=== PATIENT | male | born 1980 | race Two or more races ===

== ENCOUNTER → 2024-10-02 | Outpatient (CLI) | payer OTHER, SELFPAY ==
[2024-10-02 14:16] LABS: Basophils % (Auto) 1 % (0-2.5); Eosinophils # (Auto) 0.1 Thou/mm3 (0.0-0.5); Eosinophils % (Auto) 3 % (0-10); Hematocrit 50.2 % (41.0-53.0); Hemoglobin 17.8 g/dL (13.5-16.0); Immature Granulocytes % (Auto) 0 % (0-0); Immature Granulocytes Auto 0.02 Thou/mm3 (0.00-0.00); Lymphocytes # (Auto) 2.2 Thou/mm3 (1.0-4.8); Lymphocytes % (Auto) 40 % (10-50); Mean Corpuscular HGB Conc 35.5 g/dl (31.0-37.0); Mean Corpuscular Hemoglobin 32.6 pg (25.0-35.0); Mean Corpuscular Volume 92 fL (80-100); Monocytes # (Auto) 0.4 Thou/mm3 (0.0-0.8); Monocytes % (Auto) 8 % (0-12); Neutrophils # (Auto) 2.7 Thou/mm3 (1.8-7.7); Neutrophils % (Auto) 49 % (37-80); Nucleated Red Blood Cell % 0 /100 WBC (0); Platelet Count 124 Thou/mm3 (140-440); RDW Standard Deviation 42.9 fL (35.1-43.9); Red Blood Count 5.46 Miln/mm3 (4.50-5.90); White Blood Count 5.5 Thou/mm3 (3.8-10.6)
[2024-10-02 14:40] LABS: Alanine Aminotransferase 26 U/L (10-49); Albumin, Serum 4.8 gm/dL (3.5-5.0); Albumin/Globulin Ratio 1.9 (1.2-2.2); Alkaline Phosphatase 103 U/L (46-116); Anion Gap 9 (7-16); Aspartate Amino Transferase 23 U/L (0-34); BUN/Creatinine Ratio 12 Ratio (12-20); Bilirubin,Total 0.5 mg/dL (0.3-1.2); Blood Urea Nitrogen 23 mg/dL (9-23); Calcium 9.9 mg/dL (8.3-10.6); Calcium (Corrected) 9.9 mg/dL (8.5-10.1); Carbon Dioxide 27.4 mMol/L (20.0-31.0); Chloride 106 mMol/L (98-107); Creatinine (Component) 1.9 mg/dL (0.6-1.3); Globulin 2.5 gm/dL (2.3-3.5); Glucose 124 mg/dL (74-106); Osmolality,Calculated 287 (275-295); Sodium 142 mMol/L (136-145); Total Protein 7.3 gm/dL (5.7-8.2); eGFR 44 See Note
== END | disposition home or self-care (01) ==
LOC: SCTO 12:36
PROVIDERS: PCP Nurse Practitioner Family; Referring Provider Nurse Practitioner Family; Visit Provider Nurse Practitioner Family
DX: D69.3 Immune thrombocytopenic purpura (principal)
CPT/HCPCS: 36415; 80053; 85025

== ENCOUNTER → 2024-10-27 | Outpatient (CLI) | payer OTHER, SELFPAY ==
[2024-10-27 12:16] LABS: Misc Send Out* See Sep Rpt
[2024-10-27 13:15] LABS: Basophils % (Auto) 1 % (0-2.5); Eosinophils # (Auto) 0.2 Thou/mm3 (0.0-0.5); Eosinophils % (Auto) 3 % (0-10); Hematocrit 48.8 % (41.0-53.0); Hemoglobin 16.9 g/dL (13.5-16.0); Immature Granulocytes % (Auto) 1 % (0-0); Immature Granulocytes Auto 0.04 Thou/mm3 (0.00-0.00); Lymphocytes # (Auto) 2.4 Thou/mm3 (1.0-4.8); Lymphocytes % (Auto) 40 % (10-50); Mean Corpuscular HGB Conc 34.6 g/dl (31.0-37.0); Mean Corpuscular Hemoglobin 31.8 pg (25.0-35.0); Mean Corpuscular Volume 92 fL (80-100); Monocytes # (Auto) 0.5 Thou/mm3 (0.0-0.8); Monocytes % (Auto) 8 % (0-12); Neutrophils # (Auto) 2.9 Thou/mm3 (1.8-7.7); Neutrophils % (Auto) 48 % (37-80); Nucleated Red Blood Cell % 0 /100 WBC (0); Platelet Count 171 Thou/mm3 (140-440); RDW Standard Deviation 42.4 fL (35.1-43.9); Red Blood Count 5.32 Miln/mm3 (4.50-5.90); White Blood Count 6.1 Thou/mm3 (3.8-10.6)
[2024-10-27 13:26] LABS: Alanine Aminotransferase 30 U/L (10-49); Albumin, Serum 4.5 gm/dL (3.5-5.0); Albumin/Globulin Ratio 1.7 (1.2-2.2); Alkaline Phosphatase 104 U/L (46-116); Anion Gap 8 (7-16); Aspartate Amino Transferase 26 U/L (0-34); BUN/Creatinine Ratio 11 Ratio (12-20); Bilirubin,Total 0.5 mg/dL (0.3-1.2); Blood Urea Nitrogen 19 mg/dL (9-23); Calcium 10.1 mg/dL (8.3-10.6); Calcium (Corrected) 10.1 mg/dL (8.5-10.1); Chloride 103 mMol/L (98-107); Creatinine (Component) 1.8 mg/dL (0.6-1.3); Globulin 2.6 gm/dL (2.3-3.5); Glucose 108 mg/dL (74-106); Osmolality,Calculated 282 (275-295); Potassium 4.3 mMol/L (3.4-5.1); Sodium 140 mMol/L (136-145); Total Protein 7.1 gm/dL (5.7-8.2); eGFR 46 See Note
[2024-11-03 06:37] LABS: Erythropoietin (EPO)* 11.6 mIU/mL (2.6-18.5)
== END | disposition home or self-care (01) ==
LOC: SCTO 11:49
PROVIDERS: PCP Nurse Practitioner Family; Referring Provider Nurse Practitioner Family; Visit Provider Nurse Practitioner Family
DX: D69.3 Immune thrombocytopenic purpura (principal)
CPT/HCPCS: 36415; 80053; 81219; 81270; 81279; 81339; 82668; 85025

== ENCOUNTER 2024-10-29 13:59 | Outpatient (RCR) | payer OTHER, SELFPAY | END 2024-10-31 23:59 | disposition home or self-care (01) | LOC: SCTC 13:59 | PROVIDERS: PCP Nurse Practitioner Family; Referring Provider Nurse Practitioner Family; Visit Provider Nurse Practitioner Family | DX: D69.3 Immune thrombocytopenic purpura (principal) | CPT/HCPCS: 99212; G0463 ==

== ENCOUNTER 2024-11-10 15:44 | Outpatient (RCR) | payer OTHER, SELFPAY | END 2024-11-28 23:59 | disposition home or self-care (01) | LOC: SCTC 15:44 | PROVIDERS: PCP Nurse Practitioner Family; Referring Provider Nurse Practitioner Family; Visit Provider Nurse Practitioner Family | DX: D69.3 Immune thrombocytopenic purpura (principal); D75.1 Secondary polycythemia; E66.9 Obesity, unspecified; Z21 Asymptomatic human immunodeficiency virus [HIV] infection status; Z79.899 Other long term (current) drug therapy | CPT/HCPCS: 99212; G0463 ==

== ENCOUNTER → 2024-11-28 | Outpatient (CLI) | payer OTHER, SELFPAY ==
[2024-11-28 13:45] LABS: Basophils % (Auto) 1 % (0-2.5); Eosinophils # (Auto) 0.2 Thou/mm3 (0.0-0.5); Eosinophils % (Auto) 3 % (0-10); Hematocrit 47.5 % (41.0-53.0); Hemoglobin 16.6 g/dL (13.5-16.0); Immature Granulocytes % (Auto) 0 % (0-0); Immature Granulocytes Auto 0.03 Thou/mm3 (0.00-0.00); Lymphocytes % (Auto) 42 % (10-50); Mean Corpuscular HGB Conc 34.9 g/dl (31.0-37.0); Mean Corpuscular Hemoglobin 31.7 pg (25.0-35.0); Mean Corpuscular Volume 91 fL (80-100); Monocytes # (Auto) 0.7 Thou/mm3 (0.0-0.8); Monocytes % (Auto) 9 % (0-12); Neutrophils # (Auto) 3.2 Thou/mm3 (1.8-7.7); Neutrophils % (Auto) 45 % (37-80); Nucleated Red Blood Cell % 0 /100 WBC (0); Platelet Count 185 Thou/mm3 (140-440); RDW Standard Deviation 41.5 fL (35.1-43.9); Red Blood Count 5.23 Miln/mm3 (4.50-5.90); White Blood Count 7.1 Thou/mm3 (3.8-10.6)
[2024-11-28 14:07] LABS: Alanine Aminotransferase 20 U/L (10-49); Albumin, Serum 4.5 gm/dL (3.5-5.0); Albumin/Globulin Ratio 1.7 (1.2-2.2); Alkaline Phosphatase 115 U/L (46-116); Anion Gap 6 (7-16); Aspartate Amino Transferase 18 U/L (0-34); BUN/Creatinine Ratio 11 Ratio (12-20); Bilirubin,Total 0.5 mg/dL (0.3-1.2); Blood Urea Nitrogen 19 mg/dL (9-23); Calcium 9.8 mg/dL (8.3-10.6); Calcium (Corrected) 9.8 mg/dL (8.5-10.1); Carbon Dioxide 29.8 mMol/L (20.0-31.0); Chloride 107 mMol/L (98-107); Creatinine (Component) 1.8 mg/dL (0.6-1.3); Globulin 2.7 gm/dL (2.3-3.5); Glucose 102 mg/dL (74-106); Osmolality,Calculated 287 (275-295); Potassium 4.9 mMol/L (3.4-5.1); Sodium 143 mMol/L (136-145); Total Protein 7.2 gm/dL (5.7-8.2); eGFR 46 See Note
[2024-12-05 06:29] LABS: Testosterone,Total* 459 ng/dL (250-1100)
== END | disposition home or self-care (01) ==
LOC: COPL 12:16 → SCTO 12:35
PROVIDERS: PCP Nurse Practitioner Family; Referring Provider Nurse Practitioner Family; Visit Provider Nurse Practitioner Family
DX: D69.3 Immune thrombocytopenic purpura (principal)
CPT/HCPCS: 36415; 80053; 84403; 85025

== ENCOUNTER → 2024-12-05 | Outpatient (CLI) | payer OTHER, SELFPAY ==
--- NOTE | 2024-12-05 10:00 | XR_ITS ---
Examination: Abdomen sonogram, complete Date and time of exam: December 05, 2024 1014 hours INDICATIONS: Diagnosis thrombocytopenia. 5 years Technique: Multiple real-time grayscale transabdominal sonographic images of the abdomen have been obtained. Findings: Multiple gallstones Gallbladder wall 12 mm Common bile duct 0.3 cm Pancreatic head 2.8 cm Aorta not enlarged Liver 12.9 cm fatty liver no focal liver lesions Normal hepatopedal portal venous oh Patent IVC Right kidney 10.2 cm cortex 1.7 cm Left kidney 9.2 cm cortex 1.8 cm 6 mm upper pole left renal calculus Moderate bilateral renal parenchymal scar formation Spleen 11.4 cm IMPRESSION: Cholelithiasis, cholecystitis, consider HIDA scan follow-up Fatty liver 6 mm nonobstructing left renal calculus
== END | disposition home or self-care (01) ==
LOC: CDIM 09:40
PROVIDERS: PCP Nurse Practitioner Family; Referring Provider Nurse Practitioner Family; Visit Provider Nurse Practitioner Family
DX: K80.10 Calculus of gallbladder with chronic cholecystitis without obstruction (principal); K76.0 Fatty (change of) liver, not elsewhere classified; N20.0 Calculus of kidney
CPT/HCPCS: 76700

== ENCOUNTER 2024-12-09 15:14 | Outpatient (RCR) | payer OTHER, SELFPAY ==
--- NOTE | 2024-12-22 00:34 | CTCFLWUP_ITS ---
Patient: KELLIE BROOKS : 1980 Page 3 of 5 HEMATOLOGY FOLLOW UP NOTE DATE OF SERVICE: 12/09/2024 NAME: KELLIE BROOKS ACCOUNT: [id number] : 1980 AGE: 44 INTERVAL HISTORY: No new complaints DIAGNOSIS: Idiopathic thrombocytopenic purpura, failed on high-dose Decadron. On Promacta 25 mg p.o. daily (11/16/2021-03/07/2024) Promacta discontinued 03/08/2024 due to platelets being within normal limits. 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 TREATMENT HISTORY: Care?Plan Start?Date Cycle Day Intent HISTORY OF PRESENT ILLNESS: PREVIOUS NOTE: Kellie Brooks is a 44-year-old ENG speaking male with history of HIV infection diagnosed over 10 years ago currently being cared for by Dr Mixon is referred to hematology clinic for thrombocytopenia. He apparently had various labs drawn as well as ultrasound of the abdomen done in [place]. 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 07/29/2020: Platelet count 21,000, AST 19, ALT 27, hemoglobin 13.4, absolute lymphocyte count 2.1, absolute neutrophil count 3.4, WBC 8.4. 03/18/2021: Ultrasound of the abdomen? 05/02/2021: Platelets 21,000, WBC 6.0, ANC 3.3, hemoglobin 13.3. 06/20/2021: Platelet count 23,000, WBC 6.6, ANC 3.2, hemoglobin 12.6 06/29/2021: Bone marrow biopsy and aspiration? 07/07/2021?07/10/2021: Mr. Brooks had first cycle of high-dose dexamethasone 40 mg p.o. daily for 4 days. Mr. Brooks had hiccups for a few days. 07/12/2021: Platelet count 28,000. 07/20/2021: Platelet count 74,000. 08/01/2021?08/04/2021: Mr. Brooks had second cycle of high-dose dexamethasone 40 mg p.o. daily for 4 days. Mr. Brooks did not have any hiccups with the second cycle of dexamethasone. 08/16/2021: Platelet count 11,000. 08/19/2021: Platelet count 15,000. 08/29/2021: Platelet count 56,000. 08/31/2021: Patient started third cycle of high-dose Decadron. 1216 2020: Platelet count 36,000. 10/17/2021: Platelet count 15,000, WBC 8.8, ANC 5.4, hemoglobin 13.2, creatinine 2.0. 11/04/2021: Platelet count 115,000, WBC 7.9, hemoglobin 13.5. 11/15/2021: Platelet count 44,000. 11/16/2021: Patient started Promacta 50 mg p.o. daily. 11/22/2021: Platelet count 112,000. 11/29/2021: Platelet count 44,000. 09/15/2022: Platelet count 127,000, WBC 9.5, ANC 5.6, hemoglobin 15.7. 11/21/2022: Platelet count 194,000. 01/10/2023: Platelet count is 117,000. 02/14/2023: Platelet count is 76,000. 05/07/2023: Platelet count is 65,000. 07/03/2023: Platelet count is 65,000, WBCs are 7.9, hemoglobin is 15.2, 09/04/2023: Platelet 62,0000 11/01/2023: Platelet 393,000 01/04/2024: Platelets 277,000 02/29/2024: Platelets 285,000. 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 FAMILY HISTORY: ?Clone Family Hx? SOCIAL HISTORY: MEDICATIONS: 1. Genvoya - 1 tab Daily 2. losartan - 25 mg Daily?Palabra Meds? Medications Last Reconciled by Shelli Gongora MD on 12/09/2024 ALLERGIES: No Known Drug Allergies REVIEW OF SYSTEMS: A complete 14-point review of systems was performed and is negative except as noted in interval history. PHYSICAL EXAMINATION:?CloneBlock PE? VITAL SIGNS: Temperature?98.8, B/P?152/106, Oxygen?Saturation?97% Weight?218?lbs PAIN: 0 - No pain Not done, visit was telemedicine. LABORATORY DATA: I have personally reviewed and interpreted each of the patient?s relevant lab tests, abnormal findings are below: Date 10/27/24 11/28/24 ??WHITE?BLOOD?COUNT?(Thou/mm3) 6.1 7.1 ??RED?BLOOD?COUNT?(Miln/mm3) 5.32 5.23 ??HEMOGLOBIN?(gm/dl) 16.9?H 16.6?H ??HEMATOCRIT?(%) 48.8 47.5 ??PLATELET?COUNT?(Thou/mm3) 171 185 ??NEUTROPHILS?%,?AUTO?(%) 48 45 ??LYMPH?%,?AUTO?(%) 40 42 ??NEUTROPHILS,?AUTO?(Thou/mm3) 2.9 3.2 ??GLUCOSE,RANDOM?(mg/dL) 108?H 102 ??BLOOD?UREA?NITROGEN?(mg/dL) 19 19 ??CREATININE?(mg/dL) 1.80?H 1.80?H ??SODIUM?(mmol/L) 140 143 ??POTASSIUM?(mmol/L) 4.3 4.9 ??CHLORIDE?(mmol/L) 103 107 ??CrCl?(CandG)?(ml/min) 67.77 67.77 ??AST/SGOT?(Unit/L) 26 18 ??ALT/SGPT?(Unit/L) 30 20 ??ALKALINE?PHOSPHATASE?(Unit/L) 104 115 ??BILIRUBIN,?TOTAL?(mg/dL) 0.5 0.5 ??PROTEIN?TOTAL?(gm/dl) 7.1 7.2 ??ALBUMIN,?SERUM?(gm/dl) 4.5 4.5 ??GLOBULIN?(gm/dl) 2.6 2.7 ??ALBUMIN/GLOBULIN?RATIO 1.7 1.7 ??CALCIUM,?SERUM?(mg/dL) 10.1 9.8 ??CALCIUM?SERUM?(CORRECTED)?(mg/dL) 10.1 9.8 ASSESSMENT/PLAN:?Emre Diane Assessment/Plan? 1. Idiopathic thrombocytopenic purpura, failed on high-dose Decadron. Patient completed 3 cycles of high-dose Decadron. On Promacta 25 mg p.o. daily (11/16/2021-03/07/2024), discontinued due to platelets being within normal limits. Labs from 10/27/2024 show platelets 171,000, hemoglobin 16.9, hematocrit 48.8, MCV 92, WBC 6.1, ANC 2.8. Platelets are within normal limits. Patient denies any bleeding concerns 2 erythrocytosis Erythropoietin level 11.6, 10/27/2024 JAK2 negative, 10/27/2024 and STACIA R2 mutation negative MPL negative History of obesity, BMI Patient denies any bleeding concerns, denies any history of thrombosis, denies living in high altitudes, denies testosterone use, denies smoking cigarettes, denies known history of sleep apnea, does wake up frequently throughout the night and wakes up feeling tired. Will start phlebotomy to keep hematocrit below 45 Pending referral for sleep study for ANNA evaluation 3. Continue following up with PCP and specialist for chronic illnesses 4. History of HIV infection. Initially, diagnosed over 10 years ago. Currently patient is under the care of Dr Mixon, infectious disease. Creatinine 1.8, patient reports Dr Mixon and PCP are aware of kidney function follows up with the them regularly. CBC CMP testosterone level prior to next Ultrasound of abdomen showed fatty liver and spleen size 11.4 Also seen 6 mm nonobstructing left renal calculus with no symptoms ORDERS: Order # Description [id number] Follow Up 2 Months RETURN TO CLINIC: 2 BILLING AND COMPLIANCE: I reviewed external records from providers outside my specialty as summarized above. I spent a total of 50 minutes on this patient?s care on the day of their visit excluding time spent related to any billed procedures. This time includes time spent with the patient as well as time spent documenting in the medical record, reviewing patients records and tests, obtaining history, placing orders, communicating with other healthcare professionals, counseling the patient, family or caregiver, and/or care coordination for the diagnoses above. Electronically Signed by: Leland Diane MD T: 12:31 AM CC: PCP: Leland Diane Referring: Chasity Tatum This document was completed utilizing speech recognition software. Grammatical errors, random word insertions, pronoun errors, and incomplete sentences are an occasional consequence of this system due to software limitations, ambient noise, and hardware issues. Any formal questions or concerns about the content, text or information contained within the body of this dictation should be directly addressed to the provider for clarification.
== END 2024-12-29 23:59 | disposition home or self-care (01) ==
LOC: SCTC 15:14
PROVIDERS: PCP Nurse Practitioner Family; Referring Provider Internal Medicine Hematology & Oncology; Visit Provider Internal Medicine Hematology & Oncology
DX: D69.3 Immune thrombocytopenic purpura (principal); D75.1 Secondary polycythemia; E66.9 Obesity, unspecified; Z21 Asymptomatic human immunodeficiency virus [HIV] infection status; K76.0 Fatty (change of) liver, not elsewhere classified; N20.0 Calculus of kidney
CPT/HCPCS: 99212; G0463

== ENCOUNTER → 2025-01-06 | Outpatient (CLI) | payer OTHER, SELFPAY ==
[2025-01-06 12:19] LABS: Basophils % (Auto) 0 % (0-2.5); Eosinophils # (Auto) 0.2 Thou/mm3 (0.0-0.5); Eosinophils % (Auto) 3 % (0-10); Hematocrit 48.1 % (41.0-53.0); Hemoglobin 16.8 g/dL (13.5-16.0); Immature Granulocytes % (Auto) 0 % (0-0); Immature Granulocytes Auto 0.03 Thou/mm3 (0.00-0.00); Lymphocytes # (Auto) 2.6 Thou/mm3 (1.0-4.8); Lymphocytes % (Auto) 38 % (10-50); Mean Corpuscular HGB Conc 34.9 g/dl (31.0-37.0); Mean Corpuscular Volume 92 fL (80-100); Monocytes # (Auto) 0.6 Thou/mm3 (0.0-0.8); Monocytes % (Auto) 8 % (0-12); Neutrophils # (Auto) 3.6 Thou/mm3 (1.8-7.7); Neutrophils % (Auto) 51 % (37-80); Nucleated Red Blood Cell % 0 /100 WBC (0); Platelet Count 176 Thou/mm3 (140-440); RDW Standard Deviation 43.8 fL (35.1-43.9); Red Blood Count 5.25 Miln/mm3 (4.50-5.90)
[2025-01-06 12:41] LABS: Alanine Aminotransferase 17 U/L (10-49); Albumin, Serum 4.3 gm/dL (3.5-5.0); Albumin/Globulin Ratio 1.7 (1.2-2.2); Alkaline Phosphatase 105 U/L (46-116); Anion Gap 7 (7-16); Aspartate Amino Transferase 17 U/L (0-34); BUN/Creatinine Ratio 12 Ratio (12-20); Bilirubin,Total 0.5 mg/dL (0.3-1.2); Blood Urea Nitrogen 21 mg/dL (9-23); Calcium 9.5 mg/dL (8.3-10.6); Calcium (Corrected) 9.5 mg/dL (8.5-10.1); Carbon Dioxide 28.5 mMol/L (20.0-31.0); Chloride 105 mMol/L (98-107); Creatinine (Component) 1.8 mg/dL (0.6-1.3); Globulin 2.6 gm/dL (2.3-3.5); Glucose 109 mg/dL (74-106); Osmolality,Calculated 283 (275-295); Potassium 4.7 mMol/L (3.4-5.1); Sodium 140 mMol/L (136-145); Total Protein 6.9 gm/dL (5.7-8.2); eGFR 46 See Note
== END | disposition home or self-care (01) ==
LOC: SCTO 11:04
PROVIDERS: PCP Nurse Practitioner Family; Referring Provider Nurse Practitioner Family; Visit Provider Nurse Practitioner Family
DX: D69.3 Immune thrombocytopenic purpura (principal)
CPT/HCPCS: 36415; 80053; 85025

== ENCOUNTER → 2025-01-14 | Outpatient (CLI) | payer OTHER, SELFPAY ==
[2025-01-14 12:00] LABS: Basophils % (Auto) 1 % (0-2.5); Eosinophils # (Auto) 0.2 Thou/mm3 (0.0-0.5); Eosinophils % (Auto) 3 % (0-10); Hematocrit 48.4 % (41.0-53.0); Hemoglobin 16.7 g/dL (13.5-16.0); Immature Granulocytes % (Auto) 0 % (0-0); Immature Granulocytes Auto 0.02 Thou/mm3 (0.00-0.00); Lymphocytes # (Auto) 2.9 Thou/mm3 (1.0-4.8); Lymphocytes % (Auto) 40 % (10-50); Mean Corpuscular HGB Conc 34.5 g/dl (31.0-37.0); Mean Corpuscular Hemoglobin 32.4 pg (25.0-35.0); Mean Corpuscular Volume 94 fL (80-100); Monocytes # (Auto) 0.6 Thou/mm3 (0.0-0.8); Monocytes % (Auto) 9 % (0-12); Neutrophils # (Auto) 3.4 Thou/mm3 (1.8-7.7); Neutrophils % (Auto) 47 % (37-80); Nucleated Red Blood Cell % 0 /100 WBC (0); Platelet Count 163 Thou/mm3 (140-440); RDW Standard Deviation 43.3 fL (35.1-43.9); Red Blood Count 5.15 Miln/mm3 (4.50-5.90); White Blood Count 7.1 Thou/mm3 (3.8-10.6)
[2025-01-14 12:17] LABS: Alanine Aminotransferase 15 U/L (10-49); Albumin, Serum 4.5 gm/dL (3.5-5.0); Albumin/Globulin Ratio 1.6 (1.2-2.2); Alkaline Phosphatase 98 U/L (46-116); Anion Gap 6 (7-16); Aspartate Amino Transferase 16 U/L (0-34); BUN/Creatinine Ratio 8 Ratio (12-20); Bilirubin,Total 0.6 mg/dL (0.3-1.2); Blood Urea Nitrogen 16 mg/dL (9-23); Calcium 9.5 mg/dL (8.3-10.6); Calcium (Corrected) 9.5 mg/dL (8.5-10.1); Carbon Dioxide 29.8 mMol/L (20.0-31.0); Chloride 105 mMol/L (98-107); Creatinine (Component) 1.9 mg/dL (0.6-1.3); Globulin 2.8 gm/dL (2.3-3.5); Glucose 109 mg/dL (74-106); Osmolality,Calculated 283 (275-295); Potassium 4.4 mMol/L (3.4-5.1); Sodium 141 mMol/L (136-145); Total Protein 7.3 gm/dL (5.7-8.2); eGFR 44 See Note
== END | disposition home or self-care (01) ==
LOC: SCTO 11:33
PROVIDERS: PCP Nurse Practitioner Family; Referring Provider Nurse Practitioner Family; Visit Provider Nurse Practitioner Family
DX: D69.3 Immune thrombocytopenic purpura (principal)
CPT/HCPCS: 36415; 80053; 85025

== ENCOUNTER 2025-01-15 14:35 | Outpatient (RCR) | payer OTHER, SELFPAY | END 2025-01-28 23:59 | disposition home or self-care (01) | LOC: SCTC 14:35 | PROVIDERS: PCP Nurse Practitioner Family; Referring Provider Nurse Practitioner Family; Visit Provider Nurse Practitioner Family | DX: D69.3 Immune thrombocytopenic purpura (principal); D75.1 Secondary polycythemia; E66.9 Obesity, unspecified; Z21 Asymptomatic human immunodeficiency virus [HIV] infection status; Z79.899 Other long term (current) drug therapy | CPT/HCPCS: 99195 ==

== ENCOUNTER → 2025-01-20 | Outpatient (CLI) | payer OTHER, SELFPAY ==
[2025-01-20 12:36] LABS: Basophils % (Auto) 1 % (0-2.5); Eosinophils # (Auto) 0.2 Thou/mm3 (0.0-0.5); Eosinophils % (Auto) 2 % (0-10); Hematocrit 44.8 % (41.0-53.0); Hemoglobin 15.7 g/dL (13.5-16.0); Immature Granulocytes % (Auto) 0 % (0-0); Immature Granulocytes Auto 0.02 Thou/mm3 (0.00-0.00); Lymphocytes % (Auto) 43 % (10-50); Mean Corpuscular Hemoglobin 31.8 pg (25.0-35.0); Mean Corpuscular Volume 91 fL (80-100); Monocytes # (Auto) 0.5 Thou/mm3 (0.0-0.8); Monocytes % (Auto) 8 % (0-12); Neutrophils # (Auto) 3.2 Thou/mm3 (1.8-7.7); Neutrophils % (Auto) 46 % (37-80); Nucleated Red Blood Cell % 0 /100 WBC (0); Platelet Count 187 Thou/mm3 (140-440); RDW Standard Deviation 41.6 fL (35.1-43.9); Red Blood Count 4.93 Miln/mm3 (4.50-5.90); White Blood Count 6.9 Thou/mm3 (3.8-10.6)
== END | disposition home or self-care (01) ==
LOC: COPL 11:34
PROVIDERS: PCP Nurse Practitioner Family; Referring Provider Nurse Practitioner Family; Visit Provider Nurse Practitioner Family
DX: D69.3 Immune thrombocytopenic purpura (principal)
CPT/HCPCS: 36415; 85025

== ENCOUNTER → 2025-01-27 | Outpatient (CLI) | payer OTHER, SELFPAY ==
[2025-01-27 13:22] LABS: Basophils # (Auto) 0.1 Thou/mm3 (0.0-0.2); Basophils % (Auto) 1 % (0-2.5); Eosinophils # (Auto) 0.2 Thou/mm3 (0.0-0.5); Eosinophils % (Auto) 2 % (0-10); Hematocrit 45.7 % (41.0-53.0); Hemoglobin 15.7 g/dL (13.5-16.0); Immature Granulocytes % (Auto) 0 % (0-0); Immature Granulocytes Auto 0.03 Thou/mm3 (0.00-0.00); Lymphocytes # (Auto) 2.9 Thou/mm3 (1.0-4.8); Lymphocytes % (Auto) 42 % (10-50); Mean Corpuscular HGB Conc 34.4 g/dl (31.0-37.0); Mean Corpuscular Hemoglobin 32.1 pg (25.0-35.0); Mean Corpuscular Volume 94 fL (80-100); Monocytes # (Auto) 0.6 Thou/mm3 (0.0-0.8); Monocytes % (Auto) 9 % (0-12); Neutrophils # (Auto) 3.1 Thou/mm3 (1.8-7.7); Neutrophils % (Auto) 45 % (37-80); Nucleated Red Blood Cell % 0 /100 WBC (0); Platelet Count 194 Thou/mm3 (140-440); RDW Standard Deviation 43.4 fL (35.1-43.9); Red Blood Count 4.89 Miln/mm3 (4.50-5.90); White Blood Count 6.9 Thou/mm3 (3.8-10.6)
== END | disposition home or self-care (01) ==
LOC: SCTO 11:21
PROVIDERS: PCP Nurse Practitioner Family; Referring Provider Nurse Practitioner Family; Visit Provider Nurse Practitioner Family
DX: D69.3 Immune thrombocytopenic purpura (principal)
CPT/HCPCS: 36415; 85025

== ENCOUNTER → 2025-02-02 | Outpatient (CLI) | payer OTHER, SELFPAY ==
[2025-02-02 12:20] LABS: Basophils % (Auto) 1 % (0-2.5); Eosinophils # (Auto) 0.2 Thou/mm3 (0.0-0.5); Eosinophils % (Auto) 2 % (0-10); Hematocrit 45.5 % (41.0-53.0); Immature Granulocytes % (Auto) 0 % (0-0); Immature Granulocytes Auto 0.03 Thou/mm3 (0.00-0.00); Lymphocytes # (Auto) 3.6 Thou/mm3 (1.0-4.8); Lymphocytes % (Auto) 44 % (10-50); Mean Corpuscular HGB Conc 35.2 g/dl (31.0-37.0); Mean Corpuscular Hemoglobin 32.1 pg (25.0-35.0); Mean Corpuscular Volume 91 fL (80-100); Monocytes # (Auto) 0.7 Thou/mm3 (0.0-0.8); Monocytes % (Auto) 8 % (0-12); Neutrophils # (Auto) 3.6 Thou/mm3 (1.8-7.7); Neutrophils % (Auto) 45 % (37-80); Nucleated Red Blood Cell % 0 /100 WBC (0); Platelet Count 175 Thou/mm3 (140-440); RDW Standard Deviation 41.9 fL (35.1-43.9); Red Blood Count 4.98 Miln/mm3 (4.50-5.90); White Blood Count 8.1 Thou/mm3 (3.8-10.6)
[2025-02-02 12:29] LABS: Alanine Aminotransferase 16 U/L (10-49); Albumin, Serum 4.5 gm/dL (3.5-5.0); Albumin/Globulin Ratio 1.7 (1.2-2.2); Alkaline Phosphatase 106 U/L (46-116); Anion Gap 9 (7-16); Aspartate Amino Transferase 19 U/L (0-34); BUN/Creatinine Ratio 9 Ratio (12-20); Bilirubin,Total 0.5 mg/dL (0.3-1.2); Blood Urea Nitrogen 17 mg/dL (9-23); Calcium 9.3 mg/dL (8.3-10.6); Calcium (Corrected) 9.3 mg/dL (8.5-10.1); Carbon Dioxide 28.1 mMol/L (20.0-31.0); Chloride 106 mMol/L (98-107); Creatinine (Component) 1.8 mg/dL (0.6-1.3); Globulin 2.7 gm/dL (2.3-3.5); Glucose 111 mg/dL (74-106); Osmolality,Calculated 287 (275-295); Potassium 4.8 mMol/L (3.4-5.1); Sodium 143 mMol/L (136-145); Total Protein 7.2 gm/dL (5.7-8.2); eGFR 46 See Note
== END | disposition home or self-care (01) ==
LOC: SCTO 11:39
PROVIDERS: PCP Nurse Practitioner Family; Referring Provider Nurse Practitioner Family; Visit Provider Nurse Practitioner Family
DX: D69.3 Immune thrombocytopenic purpura (principal)
CPT/HCPCS: 36415; 80053; 85025

== ENCOUNTER 2025-02-10 15:09 | Outpatient (RCR) | payer OTHER, SELFPAY ==
--- NOTE | 2025-02-11 13:19 | CTCFLWUP_ITS ---
Patient: KELLIE BROOKS : 1980 Page 2 of 2 FOLLOW UP NOTE DATE OF SERVICE: 02/10/2025 NAME: KELLIE BROOKS ACCOUNT: [id number] : 1980 AGE: 44 INTERVAL HISTORY: Subjective: Chief Complaint Follow-up for ITP, high hemoglobin, kidney function concerns History of Present Illness Kellie is a male patient with a history of ITP who presents for follow-up. He was previously on Promacta 25 mg, which has since been discontinued, and reports that everything has been good since then. The patient denies any current symptoms related to his ITP, such as bleeding or bruising. He reports drinking a lot of water when questioned about his hydration status. Kellie mentions having undergone one phlebotomy out of four scheduled, during which he experienced significant bruising. He states, They couldn't find it here, and they couldn't get it here, but they got it here, indicating difficulty with venous access during the procedure. Regarding sleep, Kellie believes he snores at night, stating, I'm pretty sure I do. I don't record myself or anyone to hear, but I have been told I do. He has not undergone a sleep study as he reports never receiving information about it. The patient denies using a CPAP machine and states he does not have sleep apnea. He also denies any current symptoms or concerns related to his fatty liver, which was previously diagnosed. Medications and Supplements - Promacta 25 mg - Discontinued. Was taken for ITP. Review of Systems Respiratory: Positive for snoring. Hematological/Lymphatic: Positive for bruising. Objective: Physical Examination General: Well developed. Chest is heavy. Neck: Wide neck observed. Laboratory, Imaging, and Diagnostic Test Results - Date: SunFeb 10 2025 - Hemoglobin: 16 g/dL (high) - Platelets: 175 - Creatinine: 1.8 mg/dL - eGFR: 46 mL/min/1.73m? 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 On Promacta 25 mg p.o. daily (11/16/2021-03/07/2024) Promacta discontinued 03/08/2024 due to platelets being within normal limits. 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 DATE OF DIAGNOSIS: STAGE/TNM: TREATMENT HISTORY: Care?Plan Start?Date Cycle Day Intent HISTORY OF PRESENT ILLNESS: PREVIOUS NOTE: Kellie Brooks is a 44-year-old ENG speaking male with history of HIV infection diagnosed over 10 years ago currently being cared for by Dr Mixon is referred to hematology clinic for thrombocytopenia. He apparently had various labs drawn as well as ultrasound of the abdomen done in [place]. Pt working as a shop coordinator for school. 07/29/2020: Platelet count 21,000, AST 19, ALT 27, hemoglobin 13.4, absolute lymphocyte count 2.1, absolute neutrophil count 3.4, WBC 8.4. 03/18/2021: Ultrasound of the abdomen? 05/02/2021: Platelets 21,000, WBC 6.0, ANC 3.3, hemoglobin 13.3. 06/20/2021: Platelet count 23,000, WBC 6.6, ANC 3.2, hemoglobin 12.6 06/29/2021: Bone marrow biopsy and aspiration? 07/07/2021?07/10/2021: Mr. Brooks had first cycle of high-dose dexamethasone 40 mg p.o. daily for 4 days. Mr. Brooks had hiccups for a few days. 07/12/2021: Platelet count 28,000. 07/20/2021: Platelet count 74,000. 08/01/2021?08/04/2021: Mr. Brooks had second cycle of high-dose dexamethasone 40 mg p.o. daily for 4 days. Mr. Brooks did not have any hiccups with the second cycle of dexamethasone. 08/16/2021: Platelet count 11,000. 08/19/2021: Platelet count 15,000. 08/29/2021: Platelet count 56,000. 08/31/2021: Patient started third cycle of high-dose Decadron. 1216 2020: Platelet count 36,000. 10/17/2021: Platelet count 15,000, WBC 8.8, ANC 5.4, hemoglobin 13.2, creatinine 2.0. 11/04/2021: Platelet count 115,000, WBC 7.9, hemoglobin 13.5. 11/15/2021: Platelet count 44,000. 11/16/2021: Patient started Promacta 50 mg p.o. daily. 11/22/2021: Platelet count 112,000. 11/29/2021: Platelet count 44,000. 09/15/2022: Platelet count 127,000, WBC 9.5, ANC 5.6, hemoglobin 15.7. 11/21/2022: Platelet count 194,000. 01/10/2023: Platelet count is 117,000. 02/14/2023: Platelet count is 76,000. 05/07/2023: Platelet count is 65,000. 07/03/2023: Platelet count is 65,000, WBCs are 7.9, hemoglobin is 15.2, 09/04/2023: Platelet 62,0000 11/01/2023: Platelet 393,000 01/04/2024: Platelets 277,000 02/29/2024: Platelets 285,000. 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 FAMILY HISTORY: SOCIAL HISTORY: MEDICATIONS: 1. Genvoya - 1 tab Daily 2. losartan - 25 mg Daily Medications Last Reconciled by Shelli Jalloh MA on 02/10/2025 ALLERGIES: No Known Drug Allergies REVIEW OF SYSTEMS: A complete 14-point review of systems was performed and is negative except as noted in interval history. PHYSICAL EXAMINATION: VITAL SIGNS: B/P?160/104, Oxygen?Saturation?97% PAIN: 0 - No pain ECOG Performance Status: 1 - Symptomatic; ambulatory; restricted in strenuous activity Not done, visit was telemedicine. LABORATORY DATA: I have personally reviewed and interpreted each of the patient?s relevant lab tests, abnormal findings are below: Date 01/20/25 01/27/25 02/02/25 ??WHITE?BLOOD?COUNT?(Thou/mm3) 6.9 6.9 8.1 ??RED?BLOOD?COUNT?(Miln/mm3) 4.93 4.89 4.98 ??HEMOGLOBIN?(gm/dl) 15.7 15.7 16.0 ??HEMATOCRIT?(%) 44.8 45.7 45.5 ??PLATELET?COUNT?(Thou/mm3) 187 194 175 ??NEUTROPHILS?%,?AUTO?(%) 46 45 45 ??LYMPH?%,?AUTO?(%) 43 42 44 ??NEUTROPHILS,?AUTO?(Thou/mm3) 3.2 3.1 3.6 ??GLUCOSE,RANDOM?(mg/dL) ? ? 111?H ??BLOOD?UREA?NITROGEN?(mg/dL) ? ? 17 ??CREATININE?(mg/dL) ? ? 1.80?H ??SODIUM?(mmol/L) ? ? 143 ??POTASSIUM?(mmol/L) ? ? 4.8 ??CHLORIDE?(mmol/L) ? ? 106 ??CrCl?(CandG)?(ml/min) ? ? 72.71 ??AST/SGOT?(Unit/L) ? ? 19 ??ALT/SGPT?(Unit/L) ? ? 16 ??ALKALINE?PHOSPHATASE?(Unit/L) ? ? 106 ??BILIRUBIN,?TOTAL?(mg/dL) ? ? 0.5 ??PROTEIN?TOTAL?(gm/dl) ? ? 7.2 ??ALBUMIN,?SERUM?(gm/dl) ? ? 4.5 ??GLOBULIN?(gm/dl) ? ? 2.7 ??ALBUMIN/GLOBULIN?RATIO ? ? 1.7 ??CALCIUM,?SERUM?(mg/dL) ? ? 9.3 ??CALCIUM?SERUM?(CORRECTED)?(mg/dL) ? ? 9.3 ASSESSMENT/PLAN Kellie, a male patient with a history of ITP and kidney dysfunction, presents for follow-up of ITP and evaluation of elevated hemoglobin and kidney function. 1. Idiopathic thrombocytopenic purpura, failed on high-dose Decadron. Patient completed 3 cycles of high-dose Decadron. On Promacta 25 mg p.o. daily (11/16/2021-03/07/2024), discontinued due to platelets being within normal limits. Labs from 10/27/2024 show platelets 171,000, hemoglobin 16.9, hematocrit 48.8, MCV 92, WBC 6.1, ANC 2.8. Platelets are within normal limits. Patient denies any bleeding concerns Assessment: Patient has a history of ITP previously treated with Promacta 25 mg, which was discontinued. Current platelet count is 175, indicating good control of ITP without ongoing treatment. Plan: - Continue current management without medication - Monitor for signs of bleeding or bruising - Follow up in 6 months - Patient instructed to return if experiencing bleeding or bruising 2 erythrocytosis Erythropoietin level 11.6, 10/27/2024 JAK2 negative, 10/27/2024 and STACIA R2 mutation negative MPL negative History of obesity, BMI Patient denies any bleeding concerns, denies any history of thrombosis, denies living in high altitudes, denies testosterone use, denies smoking cigarettes, denies known history of sleep apnea, does wake up frequently throughout the night and wakes up feeling tired. Assessment: Hemoglobin is elevated at 16, which is unexpected given the patient's reduced kidney function. Differential diagnoses include dehydration, sleep apnea leading to hypoxia, and possible underlying malignancy. Previous workup for myeloproliferative neoplasm (MPN) was negative, including FRANKLIN mu tation testing. Concern for potential undiagnosed sleep apnea due to patient's body habitus and reported snoring. Plan: - Refer for sleep study to evaluate for sleep apnea - Encourage adequate hydration - Monitor hemoglobin levels 3. Continue following up with PCP and specialist for chronic illnesses 4. History of HIV infection. Initially, diagnosed over 10 years ago. Currently patient is under the care of Dr Mixon, infectious disease. Creatinine 1.8, patient reports Dr Mixon and PCP are aware of kidney function follows up with the them regularly. Vitamin B12 Deficiency Assessment: Recent lab work showed low vitamin B12 levels. Plan: - Recommend [id number] multivitamin supplement (e.g., Centrum Silver for men) daily Fatty Liver Disease Assessment: Patient has known fatty liver disease based on previous ultrasound findings. Plan: - Continue monitoring liver function Difficult Venous Access Assessment: Patient reports difficulty with phlebotomy, experiencing bruising and failed attempts during recent blood draws. Plan: - Consider port placement if frequent blood draws become necessary - Use larger gauge needles for blood draws when possible RETURN TO CLINIC: BILLING AND COMPLIANCE: I reviewed external records from providers outside my specialty as summarized above. I spent a total of 50 minutes on this patient?s care on the day of their visit excluding time spent related to any billed procedures. This time includes time spent with the patient as well as time spent documenting in the medical record, reviewing patients records and tests, obtaining history, placing orders, communicating with other healthcare professionals, counseling the patient, family or caregiver, and/or care coordination for the diagnoses above. Electronically Signed by: Leland Diane MD T: 1:17 PM CC: PCP: Chasity Tatum Referring: Chasity Tatum This document was completed utilizing speech recognition software. Grammatical errors, random word insertions, pronoun errors, and incomplete sentences are an occasional consequence of this system due to software limitations, ambient noise, and hardware issues. Any formal questions or concerns about the content, text or information contained within the body of this dictation should be directly addressed to the provider for clarification.
== END 2025-02-28 23:59 | disposition home or self-care (01) ==
LOC: SCTC 15:09
PROVIDERS: PCP Nurse Practitioner Family; Referring Provider Nurse Practitioner Family; Visit Provider Internal Medicine Hematology & Oncology
DX: D69.3 Immune thrombocytopenic purpura (principal); N28.9 Disorder of kidney and ureter, unspecified; D75.1 Secondary polycythemia
CPT/HCPCS: 99212; G0463

== ENCOUNTER → 2025-03-02 | Outpatient (CLI) | payer OTHER, SELFPAY ==
[2025-03-02 12:02] LABS: Basophils # (Auto) 0.1 Thou/mm3 (0.0-0.2); Basophils % (Auto) 1 % (0-2.5); Eosinophils # (Auto) 0.2 Thou/mm3 (0.0-0.5); Eosinophils % (Auto) 2 % (0-10); Hematocrit 45.6 % (41.0-53.0); Hemoglobin 16.3 g/dL (13.5-16.0); Immature Granulocytes % (Auto) 0 % (0-0); Immature Granulocytes Auto 0.02 Thou/mm3 (0.00-0.00); Lymphocytes # (Auto) 2.5 Thou/mm3 (1.0-4.8); Lymphocytes % (Auto) 36 % (10-50); Mean Corpuscular HGB Conc 35.7 g/dl (31.0-37.0); Mean Corpuscular Hemoglobin 32.5 pg (25.0-35.0); Mean Corpuscular Volume 91 fL (80-100); Monocytes # (Auto) 0.6 Thou/mm3 (0.0-0.8); Monocytes % (Auto) 9 % (0-12); Neutrophils # (Auto) 3.5 Thou/mm3 (1.8-7.7); Neutrophils % (Auto) 51 % (37-80); Nucleated Red Blood Cell % 0 /100 WBC (0); Platelet Count 175 Thou/mm3 (140-440); RDW Standard Deviation 41.1 fL (35.1-43.9); Red Blood Count 5.02 Miln/mm3 (4.50-5.90); White Blood Count 6.8 Thou/mm3 (3.8-10.6)
[2025-03-02 12:27] LABS: Alanine Aminotransferase 16 U/L (10-49); Albumin, Serum 4.1 gm/dL (3.5-5.0); Albumin/Globulin Ratio 1.7 (1.2-2.2); Alkaline Phosphatase 110 U/L (46-116); Anion Gap 12 (7-16); Aspartate Amino Transferase 18 U/L (0-34); BUN/Creatinine Ratio 9 Ratio (12-20); Bilirubin,Total 0.5 mg/dL (0.3-1.2); Blood Urea Nitrogen 16 mg/dL (9-23); Calcium 8.6 mg/dL (8.3-10.6); Calcium (Corrected) 8.6 mg/dL (8.5-10.1); Chloride 106 mMol/L (98-107); Creatinine (Component) 1.8 mg/dL (0.6-1.3); Globulin 2.4 gm/dL (2.3-3.5); Glucose 117 mg/dL (74-106); Osmolality,Calculated 285 (275-295); Sodium 142 mMol/L (136-145); Total Protein 6.5 gm/dL (5.7-8.2); eGFR 46 See Note
[2025-03-16 07:14] LABS: Erythropoietin (EPO)* 12.2 mIU/mL (2.6-18.5); Testosterone,Total* 486 ng/dL (250-1100)
== END | disposition home or self-care (01) ==
LOC: SCTO 11:32
PROVIDERS: PCP Nurse Practitioner Family; Referring Provider Internal Medicine Hematology & Oncology; Visit Provider Internal Medicine Hematology & Oncology
DX: D69.3 Immune thrombocytopenic purpura (principal)
CPT/HCPCS: 36415; 80053; 82668; 84403; 85025

== ENCOUNTER → 2025-03-09 | Outpatient (CLI) | payer OTHER, SELFPAY ==
[2025-03-09 16:27] LABS: Basophils % (Auto) 1 % (0-2.5); Eosinophils # (Auto) 0.2 Thou/mm3 (0.0-0.5); Eosinophils % (Auto) 2 % (0-10); Hematocrit 44.3 % (41.0-53.0); Hemoglobin 16.1 g/dL (13.5-16.0); Immature Granulocytes % (Auto) 1 % (0-0); Immature Granulocytes Auto 0.06 Thou/mm3 (0.00-0.00); Lymphocytes # (Auto) 2.5 Thou/mm3 (1.0-4.8); Lymphocytes % (Auto) 32 % (10-50); Mean Corpuscular HGB Conc 36.3 g/dl (31.0-37.0); Mean Corpuscular Hemoglobin 32.5 pg (25.0-35.0); Mean Corpuscular Volume 90 fL (80-100); Monocytes # (Auto) 0.7 Thou/mm3 (0.0-0.8); Monocytes % (Auto) 9 % (0-12); Neutrophils # (Auto) 4.4 Thou/mm3 (1.8-7.7); Neutrophils % (Auto) 56 % (37-80); Nucleated Red Blood Cell % 0 /100 WBC (0); Platelet Count 183 Thou/mm3 (140-440); RDW Standard Deviation 41.2 fL (35.1-43.9); Red Blood Count 4.95 Miln/mm3 (4.50-5.90); White Blood Count 7.9 Thou/mm3 (3.8-10.6)
== END | disposition home or self-care (01) ==
LOC: SCTO 15:53
PROVIDERS: PCP Nurse Practitioner Family; Referring Provider Internal Medicine Hematology & Oncology; Visit Provider Internal Medicine Hematology & Oncology
DX: D69.3 Immune thrombocytopenic purpura (principal)
CPT/HCPCS: 36415; 85025

== ENCOUNTER → 2025-03-16 | Outpatient (CLI) | payer OTHER, SELFPAY ==
[2025-03-16 14:49] LABS: Basophils # (Auto) 0.1 Thou/mm3 (0.0-0.2); Basophils % (Auto) 1 % (0-2.5); Eosinophils # (Auto) 0.1 Thou/mm3 (0.0-0.5); Eosinophils % (Auto) 2 % (0-10); Hematocrit 45.5 % (41.0-53.0); Hemoglobin 16.2 g/dL (13.5-16.0); Immature Granulocytes % (Auto) 0 % (0-0); Immature Granulocytes Auto 0.01 Thou/mm3 (0.00-0.00); Lymphocytes # (Auto) 2.4 Thou/mm3 (1.0-4.8); Lymphocytes % (Auto) 38 % (10-50); Mean Corpuscular HGB Conc 35.6 g/dl (31.0-37.0); Mean Corpuscular Hemoglobin 32.7 pg (25.0-35.0); Mean Corpuscular Volume 92 fL (80-100); Monocytes # (Auto) 0.6 Thou/mm3 (0.0-0.8); Monocytes % (Auto) 9 % (0-12); Neutrophils # (Auto) 3.2 Thou/mm3 (1.8-7.7); Neutrophils % (Auto) 51 % (37-80); Nucleated Red Blood Cell % 0 /100 WBC (0); Platelet Count 202 Thou/mm3 (140-440); RDW Standard Deviation 41.3 fL (35.1-43.9); Red Blood Count 4.95 Miln/mm3 (4.50-5.90); White Blood Count 6.2 Thou/mm3 (3.8-10.6)
== END | disposition home or self-care (01) ==
LOC: SCTO 13:43
PROVIDERS: PCP Nurse Practitioner Family; Referring Provider Internal Medicine Hematology & Oncology; Visit Provider Internal Medicine Hematology & Oncology
DX: D69.3 Immune thrombocytopenic purpura (principal)
CPT/HCPCS: 36415; 85025

== ENCOUNTER → 2025-04-01 | Outpatient (CLI) | payer OTHER, SELFPAY ==
--- NOTE | 2025-04-01 14:30 | XR_ITS ---
Examination: Retroperitoneal ultrasound, complete Technique: Multiple high resolution grayscale images of the retroperitoneum obtained, including kidneys and bladder. Exam date and time:April 01, 2025 1434 hours INDICATIONS: Diagnosis thrombocytopenia purpura beginning 2011, history 6 mm left renal calculus on ultrasound December 05, 2024 FINDINGS: Right kidney 10.5 cm cortex 1.3 cm Left kidney 8.6 cm renal cortex 1.3 cm Multiple left renal calculi, the largest 13 mm No hydronephrosis No bladder mass or bladder calculi Bladder prevoid findings 250 cc postvoid 0.109 cc Negative for prostatomegaly no prostate nodules IMPRESSION: Small left kidney Bilateral renal cortical thinning Multiple nonobstructing left renal calculi
[2025-04-01 15:37] LABS: Basophils # (Auto) 0.0 Thou/mm3 (0.0-0.2); Basophils % (Auto) 1 % (0-2.5); Eosinophils # (Auto) 0.1 Thou/mm3 (0.0-0.5); Eosinophils % (Auto) 2 % (0-10); Hematocrit 46.0 % (41.0-53.0); Hemoglobin 16.4 g/dL (13.5-16.0); Immature Granulocytes Auto 0.01 Thou/mm3 (0.00-0.00); Lymphocytes # (Auto) 2.3 Thou/mm3 (1.0-4.8); Lymphocytes % (Auto) 40 % (10-50); Mean Corpuscular HGB Conc 35.7 g/dl (31.0-37.0); Mean Corpuscular Hemoglobin 32.1 pg (25.0-35.0); Mean Corpuscular Volume 90 fL (80-100); Monocytes # (Auto) 0.4 Thou/mm3 (0.0-0.8); Monocytes % (Auto) 8 % (0-12); Neutrophils # (Auto) 2.8 Thou/mm3 (1.8-7.7); Neutrophils % (Auto) 49 % (37-80); Nucleated Red Blood Cell # 0.00 Thou/mm3 (0.00-0.00); Nucleated Red Blood Cell % 0 /100 WBC (0); Platelet Count 169 Thou/mm3 (140-440); RDW Standard Deviation 41.1 fL (35.1-43.9); Red Blood Count 5.11 Miln/mm3 (4.50-5.90); White Blood Count 5.7 Thou/mm3 (3.8-10.6)
== END | disposition home or self-care (01) ==
LOC: CDIM 14:10 → SCTO 14:12
PROVIDERS: PCP Nurse Practitioner Family; Referring Provider Internal Medicine Hematology & Oncology; Visit Provider Radiology Diagnostic Radiology
DX: N27.0 Small kidney, unilateral (principal); N28.89 Other specified disorders of kidney and ureter; N20.0 Calculus of kidney; D69.3 Immune thrombocytopenic purpura
CPT/HCPCS: 36415; 76770; 85025

== ENCOUNTER 2025-04-02 15:02 | Outpatient (RCR) | payer OTHER, SELFPAY | END 2025-04-30 23:59 | disposition home or self-care (01) | LOC: SCTC 15:02 | PROVIDERS: PCP Nurse Practitioner Family; Referring Provider Nurse Practitioner Family; Visit Provider Nurse Practitioner Family | DX: D75.1 Secondary polycythemia (principal); D69.3 Immune thrombocytopenic purpura | CPT/HCPCS: 99195 ==

== ENCOUNTER → 2025-04-08 | Outpatient (CLI) | payer OTHER, SELFPAY ==
[2025-04-08 14:16] LABS: Basophils # (Auto) 0.0 Thou/mm3 (0.0-0.2); Basophils % (Auto) 1 % (0-2.5); Eosinophils # (Auto) 0.1 Thou/mm3 (0.0-0.5); Eosinophils % (Auto) 2 % (0-10); Hematocrit 44.3 % (41.0-53.0); Hemoglobin 15.6 g/dL (13.5-16.0); Immature Granulocytes Auto 0.02 Thou/mm3 (0.00-0.00); Lymphocytes # (Auto) 2.3 Thou/mm3 (1.0-4.8); Lymphocytes % (Auto) 38 % (10-50); Mean Corpuscular HGB Conc 35.2 g/dl (31.0-37.0); Mean Corpuscular Hemoglobin 32.1 pg (25.0-35.0); Mean Corpuscular Volume 91 fL (80-100); Monocytes # (Auto) 0.5 Thou/mm3 (0.0-0.8); Monocytes % (Auto) 9 % (0-12); Neutrophils # (Auto) 3.0 Thou/mm3 (1.8-7.7); Neutrophils % (Auto) 51 % (37-80); Nucleated Red Blood Cell # 0.00 Thou/mm3 (0.00-0.00); Nucleated Red Blood Cell % 0 /100 WBC (0); Platelet Count 185 Thou/mm3 (140-440); RDW Standard Deviation 42.2 fL (35.1-43.9); Red Blood Count 4.86 Miln/mm3 (4.50-5.90); White Blood Count 6.0 Thou/mm3 (3.8-10.6)
== END | disposition home or self-care (01) ==
LOC: COPL 13:04
PROVIDERS: PCP Family Medicine; Referring Provider Internal Medicine Hematology & Oncology; Visit Provider Internal Medicine Hematology & Oncology
DX: D69.3 Immune thrombocytopenic purpura (principal)
CPT/HCPCS: 36415; 85025

== ENCOUNTER → 2025-04-13 | Outpatient (CLI) | payer OTHER, SELFPAY ==
[2025-04-13 16:00] LABS: Basophils # (Auto) 0.0 Thou/mm3 (0.0-0.2); Basophils % (Auto) 1 % (0-2.5); Eosinophils # (Auto) 0.2 Thou/mm3 (0.0-0.5); Eosinophils % (Auto) 4 % (0-10); Hematocrit 42.7 % (41.0-53.0); Hemoglobin 15.1 g/dL (13.5-16.0); Immature Granulocytes Auto 0.01 Thou/mm3 (0.00-0.00); Lymphocytes # (Auto) 2.4 Thou/mm3 (1.0-4.8); Lymphocytes % (Auto) 42 % (10-50); Mean Corpuscular HGB Conc 35.4 g/dl (31.0-37.0); Mean Corpuscular Hemoglobin 31.9 pg (25.0-35.0); Mean Corpuscular Volume 90 fL (80-100); Monocytes # (Auto) 0.5 Thou/mm3 (0.0-0.8); Monocytes % (Auto) 8 % (0-12); Neutrophils # (Auto) 2.6 Thou/mm3 (1.8-7.7); Neutrophils % (Auto) 45 % (37-80); Nucleated Red Blood Cell # 0.00 Thou/mm3 (0.00-0.00); Nucleated Red Blood Cell % 0 /100 WBC (0); Platelet Count 177 Thou/mm3 (140-440); RDW Standard Deviation 42.8 fL (35.1-43.9); Red Blood Count 4.73 Miln/mm3 (4.50-5.90); White Blood Count 5.8 Thou/mm3 (3.8-10.6)
== END | disposition home or self-care (01) ==
LOC: COPL 15:08
PROVIDERS: PCP Family Medicine; Referring Provider Internal Medicine Hematology & Oncology; Visit Provider Internal Medicine Hematology & Oncology
DX: D69.3 Immune thrombocytopenic purpura (principal)
CPT/HCPCS: 36415; 85025

== ENCOUNTER → 2025-04-20 | Outpatient (CLI) | payer OTHER, SELFPAY ==
[2025-04-20 14:37] LABS: Basophils # (Auto) 0.0 Thou/mm3 (0.0-0.2); Basophils % (Auto) 1 % (0-2.5); Eosinophils # (Auto) 0.2 Thou/mm3 (0.0-0.5); Eosinophils % (Auto) 3 % (0-10); Hematocrit 44.1 % (41.0-53.0); Hemoglobin 15.4 g/dL (13.5-16.0); Immature Granulocytes Auto 0.02 Thou/mm3 (0.00-0.00); Lymphocytes # (Auto) 2.4 Thou/mm3 (1.0-4.8); Lymphocytes % (Auto) 40 % (10-50); Mean Corpuscular HGB Conc 34.9 g/dl (31.0-37.0); Mean Corpuscular Hemoglobin 32.0 pg (25.0-35.0); Mean Corpuscular Volume 92 fL (80-100); Monocytes # (Auto) 0.5 Thou/mm3 (0.0-0.8); Monocytes % (Auto) 9 % (0-12); Neutrophils # (Auto) 2.9 Thou/mm3 (1.8-7.7); Neutrophils % (Auto) 49 % (37-80); Nucleated Red Blood Cell # 0.00 Thou/mm3 (0.00-0.00); Nucleated Red Blood Cell % 0 /100 WBC (0); Platelet Count 178 Thou/mm3 (140-440); RDW Standard Deviation 43.4 fL (35.1-43.9); Red Blood Count 4.81 Miln/mm3 (4.50-5.90); White Blood Count 6.0 Thou/mm3 (3.8-10.6)
== END | disposition home or self-care (01) ==
LOC: SCTO 13:18
PROVIDERS: PCP Family Medicine; Referring Provider Internal Medicine Hematology & Oncology; Visit Provider Internal Medicine Hematology & Oncology
DX: D69.3 Immune thrombocytopenic purpura (principal)
CPT/HCPCS: 36415; 85025

== ENCOUNTER → 2025-08-12 | Outpatient (CLI) | payer OTHER, SELFPAY ==
[2025-08-19 06:23] LABS: Erythropoietin (EPO)* 7.3 mIU/mL (2.6-18.5)
== END | disposition home or self-care (01) ==
LOC: SCTO 11:31
PROVIDERS: PCP Family Medicine; Referring Provider Internal Medicine Hematology & Oncology; Visit Provider Internal Medicine Hematology & Oncology
DX: D69.3 Immune thrombocytopenic purpura (principal)
CPT/HCPCS: 36415; 82668

== ENCOUNTER 2025-08-13 15:12 | Outpatient (RCR) | payer OTHER, SELFPAY ==
--- NOTE | 2025-08-16 20:27 | CTCFLWUP_ITS ---
Patient: KELLIE BROOKS : 1980 Page 5 of 6 FOLLOW UP NOTE DATE OF SERVICE: 08/13/2025 NAME: KELLIE BROOKS ACCOUNT: [id number] : 1980 AGE: 45 INTERVAL HISTORY: Patient had his sleep study done. Sleep study showed significant obstructive sleep apnea but due to patient's insurance policy they were not eligible for in- lab sleep CPAP titration study. Sleep study recommended APAP or auto CPAP at a pressure range of 8-15 of water. I forwarded the results to patient's primary care and also give report for him to take to the primary care. Patient is very reluctant to wear CPAP machine. Patient to have obesity HIV erythrocytosis and fatty liver. Last phlebotomy was about 3 months ago and since then his numbers have been stable. Review of Systems Respiratory: Positive for snoring. Hematological/Lymphatic: Positive for bruising. Objective: Physical Examination General: Well developed. Chest is heavy. Neck: Wide neck observed. Laboratory, Imaging, and Diagnostic Test Results - Date: SunFeb 10 2025 - Hemoglobin: 16 g/dL (high) - Platelets: 175 - Creatinine: 1.8 mg/dL - eGFR: 46 mL/min/1.73m? 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 On Promacta 25 mg p.o. daily (11/16/2021-03/07/2024) Promacta discontinued 03/08/2024 due to platelets being within normal limits. 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 DATE OF DIAGNOSIS: STAGE/TNM: TREATMENT HISTORY: Care?Plan Start?Date Cycle Day Intent HISTORY OF PRESENT ILLNESS: PREVIOUS NOTE: Kellie Brooks is a 45-year-old ENG speaking male with history of HIV infection diagnosed over 10 years ago currently being cared for by Dr Mixon is referred to hematology clinic for thrombocytopenia. He apparently had various labs drawn as well as ultrasound of the abdomen done in [place]. 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 07/29/2020: Platelet count 21,000, AST 19, ALT 27, hemoglobin 13.4, absolute lymphocyte count 2.1, absolute neutrophil count 3.4, WBC 8.4. 03/18/2021: Ultrasound of the abdomen? 05/02/2021: Platelets 21,000, WBC 6.0, ANC 3.3, hemoglobin 13.3. 06/20/2021: Platelet count 23,000, WBC 6.6, ANC 3.2, hemoglobin 12.6 06/29/2021: Bone marrow biopsy and aspiration? 07/07/2021?07/10/2021: Mr. Brooks had first cycle of high-dose dexamethasone 40 mg p.o. daily for 4 days. Mr. Brooks had hiccups for a few days. 07/12/2021: Platelet count 28,000. 07/20/2021: Platelet count 74,000. 08/01/2021?08/04/2021: Mr. Brooks had second cycle of high-dose dexamethasone 40 mg p.o. daily for 4 days. Mr. Brooks did not have any hiccups with the second cycle of dexamethasone. 08/16/2021: Platelet count 11,000. 08/19/2021: Platelet count 15,000. 08/29/2021: Platelet count 56,000. 08/31/2021: Patient started third cycle of high-dose Decadron. 1216 2020: Platelet count 36,000. 10/17/2021: Platelet count 15,000, WBC 8.8, ANC 5.4, hemoglobin 13.2, creatinine 2.0. 11/04/2021: Platelet count 115,000, WBC 7.9, hemoglobin 13.5. 11/15/2021: Platelet count 44,000. 11/16/2021: Patient started Promacta 50 mg p.o. daily. 11/22/2021: Platelet count 112,000. 11/29/2021: Platelet count 44,000. 09/15/2022: Platelet count 127,000, WBC 9.5, ANC 5.6, hemoglobin 15.7. 11/21/2022: Platelet count 194,000. 01/10/2023: Platelet count is 117,000. 02/14/2023: Platelet count is 76,000. 05/07/2023: Platelet count is 65,000. 07/03/2023: Platelet count is 65,000, WBCs are 7.9, hemoglobin is 15.2, 09/04/2023: Platelet 62,0000 11/01/2023: Platelet 393,000 01/04/2024: Platelets 277,000 02/29/2024: Platelets 285,000. 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 FAMILY HISTORY: SOCIAL HISTORY: MEDICATIONS: 1. amlodipine - 5 mg 1 tab Daily 2. Genvoya - 1 tab Daily 3. losartan - 25 mg Daily Medications Last Reconciled by Shelli Gongora MD on 08/14/2025 ALLERGIES: No Known Drug Allergies REVIEW OF SYSTEMS: A complete 14-point review of systems was performed and is negative except as noted in interval history. PHYSICAL EXAMINATION: VITAL SIGNS: Temperature?97, B/P?120/79, Oxygen?Saturation?98% Weight?210?lbs PAIN: 0 - No pain ECOG Performance Status: None Not done, visit was telemedicine. LABORATORY DATA: I have personally reviewed and interpreted each of the patient?s relevant lab tests, abnormal findings are below: Date 04/01/25 04/08/25 04/13/25 04/20/25 ??WHITE?BLOOD?COUNT?(Thou/mm3) 5.7 6.0 5.8 6.0 ??RED?BLOOD?COUNT?(Miln/mm3) 5.11 4.86 4.73 4.81 ??HEMOGLOBIN?(gm/dl) 16.4?H 15.6 15.1 15.4 ??HEMATOCRIT?(%) 46.0 44.3 42.7 44.1 ??PLATELET?COUNT?(Thou/mm3) 169 185 177 178 ??NEUTROPHILS?%,?AUTO?(%) 49 51 45 49 ??LYMPH?%,?AUTO?(%) 40 38 42 40 ??NEUTROPHILS,?AUTO?(Thou/mm3) 2.8 3.0 2.6 2.9 ASSESSMENT/PLAN: Patient has a history of ITP previously treated with Promacta 25 mg, which was discontinued. Current platelet count is 175, indicating good control of ITP without ongoing treatment. - Continue current management without medication - Monitor for signs of bleeding or bruising - Follow up in 6 months - Patient instructed to return if experiencing bleeding or bruising 2 erythrocytosis Erythropoietin level 11.6, 10/27/2024 JAK2 negative, 10/27/2024 and STACIA R2 mutation negative MPL negative History of obesity, BMI Patient denies any bleeding concerns, denies any history of thrombosis, denies living in high altitudes, denies testosterone use, denies smoking cigarettes, denies known history of sleep apnea, does wake up frequently throughout the night and wakes up feeling tired. Sleep study completed and confirmed sleep apnea with episodes of hypoxia and anoxia Advised patient to follow with the primary care for his CPAP prescription Patient given report which we received from [facility] 3. Continue following up with PCP and specialist for chronic illnesses 4. History of HIV infection. Initially, diagnosed over 10 years ago. Currently patient is under the care of Dr Mixon, infectious disease. Creatinine 1.8, patient reports Dr Mixon and PCP are aware of kidney function follows up with the them regularly. Vitamin B12 Deficiency Assessment: Recent lab work showed low vitamin B12 levels. Plan: - Recommend [id number] multivitamin supplement (e.g., Centrum Silver for men) daily Fatty Liver Disease Assessment: Patient has known fatty liver disease based on previous ultrasound findings. Plan: - Continue monitoring liver function Difficult Venous Access Assessment: Patient reports difficulty with phlebotomy, experiencing bruising and failed attempts during recent blood draws. Plan: - Consider port placement if frequent blood draws become necessary - Use larger gauge needles for blood draws when possible Will continue phlebotomy every 3 months with a CBC done every 2 to 3 months ORDERS: Order # Description [id number] CBC with Auto Diff [id number] Phlebotomy Appt RETURN TO CLINIC: I reviewed the diagnosis, prognosis, and recommended treatment/procedure options with the patient (and/or their legal claims service representative), including the potential benefits, risks, side effects and alternative therapies. We also discussed the option of no treatment and the possibility of clinical trial participation, if applicable. All questions were addressed, and they demonstrated understanding. They provided informed consent to proceed with the proposed plan of care. BILLING AND COMPLIANCE: I reviewed external records from providers outside my specialty as summarized above. I spent a total of 50 minutes on this patient?s care on the day of their visit excluding time spent related to any billed procedures. This time includes time spent with the patient as well as time spent documenting in the medical record, reviewing patients records and tests, obtaining history, placing orders, communicating with other healthcare professionals, counseling the patient, family or caregiver, and/or care coordination for the diagnoses above. Electronically Signed by: {Object.Sanct_ID*PnP.NameFL@M}, {Object.Sanct_ID*PnP.Suffix@U} D: {Object.Sanct_Date} T: {Object.Sanct_Time} CC: PCP: Davi Goodwin Referring: Davi Goodwin This document was completed utilizing speech recognition software. Grammatical errors, random word insertions, pronoun errors, and incomplete sentences are an occasional consequence of this system due to software limitations, ambient noise, and hardware issues. Any formal questions or concerns about the content, text or information contained within the body of this dictation should be directly addressed to the provider for clarification.
== END 2025-08-30 23:59 | disposition home or self-care (01) ==
LOC: SCTC 15:12
PROVIDERS: PCP Family Medicine; Referring Provider Family Medicine; Visit Provider Internal Medicine Hematology & Oncology
DX: D69.3 Immune thrombocytopenic purpura (principal); D75.1 Secondary polycythemia; G47.33 Obstructive sleep apnea (adult) (pediatric); E66.9 Obesity, unspecified; Z21 Asymptomatic human immunodeficiency virus [HIV] infection status; E53.8 Deficiency of other specified B group vitamins; K76.0 Fatty (change of) liver, not elsewhere classified
CPT/HCPCS: 99212; G0463

== ENCOUNTER → 2025-08-26 | Outpatient (CLI) | payer OTHER, SELFPAY ==
[2025-08-26 12:51] LABS: Basophils # (Auto) 0.0 Thou/mm3 (0.0-0.2); Basophils % (Auto) 1 % (0-2.5); Eosinophils # (Auto) 0.3 Thou/mm3 (0.0-0.5); Eosinophils % (Auto) 4 % (0-10); Hematocrit 43.7 % (41.0-53.0); Hemoglobin 15.2 g/dL (13.5-16.0); Immature Granulocytes Auto 0.02 Thou/mm3 (0.00-0.00); Lymphocytes # (Auto) 1.8 Thou/mm3 (1.0-4.8); Lymphocytes % (Auto) 25 % (10-50); Mean Corpuscular HGB Conc 34.8 g/dl (31.0-37.0); Mean Corpuscular Hemoglobin 32.2 pg (25.0-35.0); Mean Corpuscular Volume 93 fL (80-100); Monocytes # (Auto) 0.6 Thou/mm3 (0.0-0.8); Monocytes % (Auto) 9 % (0-12); Neutrophils # (Auto) 4.4 Thou/mm3 (1.8-7.7); Neutrophils % (Auto) 61 % (37-80); Nucleated Red Blood Cell # 0.00 Thou/mm3 (0.00-0.00); Nucleated Red Blood Cell % 0 /100 WBC (0); Platelet Count 162 Thou/mm3 (140-440); RDW Standard Deviation 44.2 fL (35.1-43.9); Red Blood Count 4.72 Miln/mm3 (4.50-5.90); White Blood Count 7.2 Thou/mm3 (3.8-10.6)
== END | disposition home or self-care (01) ==
LOC: COPL 11:54
PROVIDERS: PCP Family Medicine; Referring Provider Internal Medicine Hematology & Oncology; Visit Provider Internal Medicine Hematology & Oncology
DX: D69.3 Immune thrombocytopenic purpura (principal)
CPT/HCPCS: 36415; 85025